=== PATIENT | female | born 2000 | race American Indian/Alaskan Native ===

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

== ENCOUNTER 2018-05-14 11:26 | Emergency (ER) | payer SELFPAY ==
[2018-05-14 11:38] VITALS: BP 108/62
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
== END 2018-05-14 14:03 | disposition home or self-care (01) ==
LOC: ED 11:26
DX: M26.621 Arthralgia of right temporomandibular joint (principal)
CPT/HCPCS: 99282